=== PATIENT | male | born 1970 | race African-American/Black ===

== ENCOUNTER 2023-07-29 06:26 | Emergency (ER) | payer OTHER ==
[2023-07-29 06:34] VITALS: BP 140/92; PULSE 110; RESP 20; TEMP 98.3; BMI 22.4
[2023-07-29] MEDS ORDERED: LACTATED RINGERS SOLUTION 1000 ML INFUS.BAG IV ONE (07:22)
[2023-07-29] MEDS ORDERED: ACETAMINOPHEN 1000 MG/100 ML BAG IVPB ONE (07:25)
[2023-07-29] MEDS ORDERED: GABAPENTIN 400 MG CAPSULE PO ONE (07:30)
[2023-07-29] MEDS ORDERED: ACETAMINOPHEN INJECTION 100 ML IVPB ONE (07:53)
[2023-07-29] MEDS ORDERED: GABAPENTIN 400 MG CAPSULE ONE (07:53)
[2023-07-29] MEDS ORDERED: ONDANSETRON 4 MG/2 ML VIAL IVPUSH ONE (08:01)
[2023-07-29] MEDS ORDERED: ONDANSETRON 4 MG/2 ML VIAL ONE (08:02)
[2023-07-29 08:07] LABS: PH,URINE 6.5 (5.0-8.0); URINE APPEARANCE CLEAR; URINE BILIRUBIN NEGATIVE (NEGATIVE); URINE COLOR YELLOW; URINE GLUCOSE (UA) 3+ (NEGATIVE); URINE KETONE NEGATIVE (NEGATIVE); URINE LEUK ESTERASE NEGATIVE (NEGATIVE); URINE NITRITE NEGATIVE (NEGATIVE); URINE PROTEIN NEGATIVE (NEGATIVE); URINE UROBILINOGEN 0.2 mg/dL (0.2-1.0)
[2023-07-29 08:13] LABS: BASO % 0.5 % (0-2.0); EOS % 0.7 % (0-4.5); HEMATOCRIT 41.6 % (35.4-49); HEMOGLOBIN 13.5 GM/dL (11.7-16.9); LYMPH % 33.5 % (8-40); MCH 26.8 pg (25.7-33.7); MCHC 32.5 g/dl (32.0-35.9); MEAN CELL VOLUME 82.2 fl (80-96); MONO % 5.7 % (3.8-10.2); NEUT % 59.6 % (42.8-82.8); PLATELET COUNT 218 10^3/uL (134-434); RBC 5.06 M/mm3 (4.00-5.60); RDW 13.3 % (11.9-15.9); WHITE BLOOD COUNT 5.5 K/mm3 (4.0-10.0)
[2023-07-29 08:31] LABS: CHLORIDE 96 mmol/L (98-107); SODIUM 135 mmol/L (136-145)
[2023-07-29 08:35] LABS: ALBUMIN 3.4 g/dl (3.4-5.0); ANION GAP 6 mmol/L (4-13); BLOOD UREA NITROGEN 11.3 mg/dL (7-18); CO2 33 mmol/L (21-32)
[2023-07-29 08:37] LABS: CREATININE 1.3 mg/dL (0.55-1.3); SGOT/AST 13 U/L (15-37); SGPT/ALT 24 U/L (13-61)
[2023-07-29 08:39] LABS: BILIRUBIN,TOTAL 0.3 mg/dL (0.2-1); TOT PROT 6.2 g/dl (6.4-8.2)
[2023-07-29 08:40] LABS: ALK PHOS 213 U/L (45-117)
[2023-07-29] MEDS ORDERED: oxyCODONE HCL 5 MG TABLET PO ONE (10:08)
[2023-07-29] MEDS ORDERED: INSULIN (NOVOLOG MIX 70/30) 100 UNITS/ML MDV SQ ONE ×2 (10:23→10:32)
[2023-07-29] MEDS ORDERED: oxyCODONE HCL 5 MG TABLET ONE (10:29)
[2023-07-29 11:20] LABS: GLUCOSE,RANDOM 587 mg/dL (74-106)
== END 2023-07-29 12:04 | disposition home or self-care (01) ==
LOC: JER 06:26
PROC: 3E033NZ Introduction of Analgesics, Hypnotics, Sedatives into Peripheral Vein, Percutaneous Approach (ICD-10-PCS; principal; 2023-07-29)
PROC: 3E033GC Introduction of Other Therapeutic Substance into Peripheral Vein, Percutaneous Approach (ICD-10-PCS; 2023-07-29)
DX: E11.65 Type 2 diabetes mellitus with hyperglycemia (principal); E11.40 Type 2 diabetes mellitus with diabetic neuropathy, unspecified; M79.641 Pain in right hand; M79.642 Pain in left hand; M79.671 Pain in right foot; M79.672 Pain in left foot; R11.0 Nausea; R35.0 Frequency of micturition; R10.9 Unspecified abdominal pain; I10 Essential (primary) hypertension
CPT/HCPCS: 36415; 80053; 81003; 82010; 82962; 83735; 85025; 87086; 99284-25

== ENCOUNTER 2023-09-25 03:46 | Emergency (ER) | payer OTHER ==
[2023-09-25 03:54] VITALS: BMI 22.4
[2023-09-25] MEDS ORDERED: ACETAMINOPHEN INJECTION 100 ML IVPB ONE (04:53)
[2023-09-25] MEDS ORDERED: ONDANSETRON 4 MG/2 ML VIAL ONE (04:54)
[2023-09-25] MEDS: ACETAMINOPHEN 1000 MG/100 ML BAG IVPB ONE (05:16)
[2023-09-25] MEDS: ONDANSETRON 4 MG/2 ML VIAL IVPUSH ONE (05:17)
[2023-09-25] MEDS ORDERED: GABAPENTIN 400 MG CAPSULE ONE (05:23)
[2023-09-25] MEDS: GABAPENTIN 400 MG CAPSULE PO ONE (05:26)
[2023-09-25 05:41] LABS: VENOUS BASE EXCESS -0.1 mmol/L (-2-2); VENOUS O2 SATURATION 34.7 % (70-80); VENOUS PH 7.346 (7.310-7.410)
[2023-09-25 06:05] LABS: POTASSIUM 3.8 mmol/L (3.5-5.1)
[2023-09-25 06:08] LABS: ALBUMIN 3.4 g/dl (3.4-5.0); BLOOD UREA NITROGEN 11.6 mg/dL (7-18); CALCIUM 8.5 mg/dL (8.5-10.1)
[2023-09-25 06:09] LABS: BASO % 0.3 % (0-2.0); EOS % 0.6 % (0-4.5); HEMATOCRIT 40.2 % (35.4-49); HEMOGLOBIN 13.1 GM/dL (11.7-16.9); MCH 26.6 pg (25.7-33.7); MCHC 32.7 g/dl (32.0-35.9); MEAN CELL VOLUME 81.4 fl (80-96); MEAN PLT VOLUME 8.8 fl (7.5-11.1); MONO % 5.4 % (3.8-10.2); NEUT % 51.7 % (42.8-82.8); PLATELET COUNT 239 10^3/uL (134-434); RBC 4.94 M/mm3 (4.00-5.60); RDW 13.5 % (11.9-15.9); WHITE BLOOD COUNT 6.2 K/mm3 (4.0-10.0)
[2023-09-25 06:10] LABS: CREATININE 0.9 mg/dL (0.55-1.3)
[2023-09-25 06:11] LABS: BILIRUBIN,TOTAL 0.6 mg/dL (0.2-1)
[2023-09-25 06:13] LABS: TOT PROT 6.1 g/dl (6.4-8.2)
[2023-09-25 06:32] LABS: URINE APPEARANCE CLEAR; URINE BILIRUBIN NEGATIVE (NEGATIVE); URINE COLOR YELLOW; URINE GLUCOSE (UA) 3+ (NEGATIVE); URINE KETONE NEGATIVE (NEGATIVE); URINE LEUK ESTERASE NEGATIVE (NEGATIVE); URINE NITRITE NEGATIVE (NEGATIVE); URINE PROTEIN NEGATIVE (NEGATIVE)
[2023-09-25] MEDS ORDERED: KETOROLAC TROMETHAMINE 15 MG/ML VIAL ONE (07:57)
[2023-09-25] MEDS ORDERED: METOCLOPRAMIDE HCL INJECTION 10 MG/2 ML VIAL ONE (07:57)
[2023-09-25] MEDS: SODIUM CHLORIDE 0.9% 500 ML INFUS.BAG IV ONE (08:10)
[2023-09-25] MEDS: KETOROLAC TROMETHAMINE 15 MG/ML VIAL IVPUSH ONE (08:10)
[2023-09-25] MEDS: METOCLOPRAMIDE HCL INJECTION 10 MG/2 ML VIAL IVPUSH ONE (08:10)
[2023-09-25] MEDS ORDERED: LIDOCAINE 4% PATCH TP ONE (09:25)
[2023-09-25] MEDS ORDERED: METHOCARBAMOL 500 MG TABLET ONE (09:25)
[2023-09-25] MEDS: METHOCARBAMOL 500 MG TABLET PO ONE (09:28)
[2023-09-25] MEDS: LIDOCAINE 5% TOPICAL PATCH TP ONE (09:28)
[2023-09-25 09:41] VITALS: BP 133/96; PULSE 83; RESP 20; TEMP 98.1
== END 2023-09-25 09:46 | disposition home or self-care (01) ==
LOC: JER 03:46
PROC: 3E033NZ Introduction of Analgesics, Hypnotics, Sedatives into Peripheral Vein, Percutaneous Approach (ICD-10-PCS; principal; 2023-09-25)
PROC: 3E0333Z Introduction of Anti-inflammatory into Peripheral Vein, Percutaneous Approach (ICD-10-PCS; 2023-09-25)
PROC: 3E033GC Introduction of Other Therapeutic Substance into Peripheral Vein, Percutaneous Approach (ICD-10-PCS; 2023-09-25)
PROC: 3E033GC Introduction of Other Therapeutic Substance into Peripheral Vein, Percutaneous Approach (ICD-10-PCS; 2023-09-25)
DX: M54.50 Low back pain, unspecified (principal); R10.32 Left lower quadrant pain; R52 Pain, unspecified; R11.0 Nausea; R19.7 Diarrhea, unspecified
CPT/HCPCS: 36415; 71045-TC-FY; 72131-TC; 74177-TC; 80053; 81003; 82010; 82803; 82962; 83690; 84484; 85025; 87086; 93005; 93010; 99285-25; J0131

== ENCOUNTER 2023-12-03 22:56 | Emergency (ER) | payer OTHER ==
[2023-12-03 23:13] VITALS: BP 122/90; PULSE 100; RESP 18; TEMP 98.4; BMI 22.0
[2023-12-04] MEDS ORDERED: GABAPENTIN 300 MG CAPSULE ONE (00:19)
[2023-12-04] MEDS ORDERED: KETOROLAC TROMETHAMINE 30 MG/1 ML VIAL ONE (00:20)
[2023-12-04] MEDS ORDERED: LIDOCAINE 4% PATCH TP ONE (00:20)
[2023-12-04] MEDS: LIDOCAINE 5% TOPICAL PATCH TP ONE (00:33)
[2023-12-04] MEDS: KETOROLAC TROMETHAMINE 30 MG/1 ML VIAL IM ONE (00:34)
[2023-12-04] MEDS: GABAPENTIN 300 MG CAPSULE PO ONE (00:34)
[2023-12-04] MEDS ORDERED: morphine SULFATE 4 MG/ML VIAL ONE (01:43)
[2023-12-04] MEDS: morphine CARPU-JECT 4 MG/1 ML DISP.SYRIN IM ONE (01:48)
[2023-12-04] MEDS ORDERED: LIDOCAINE PATCH REMOVAL MC SCH (22:00)
== END 2023-12-04 03:11 | disposition home or self-care (01) ==
LOC: JER 22:56
PROC: 3E0133Z Introduction of Anti-inflammatory into Subcutaneous Tissue, Percutaneous Approach (ICD-10-PCS; principal; 2023-12-04)
PROC: 3E013NZ Introduction of Analgesics, Hypnotics, Sedatives into Subcutaneous Tissue, Percutaneous Approach (ICD-10-PCS; 2023-12-04)
DX: M54.50 Low back pain, unspecified (principal); G89.29 Other chronic pain; R20.0 Anesthesia of skin
CPT/HCPCS: 82962; 96372; 99284-25

== ENCOUNTER 2024-01-07 15:32 | Emergency (ER) | payer OTHER ==
[2024-01-07 16:10] VITALS: BP 114/79; PULSE 111; RESP 20; BMI 20.9
[2024-01-07 16:23] VITALS: TEMP 98.3
[2024-01-07 17:13] LABS: VENOUS BASE EXCESS 5.3 mmol/L (-2-2); VENOUS O2 SATURATION 23.2 % (70-80); VENOUS PCO2 56.8 mmHg (38-52); VENOUS PH 7.373 (7.310-7.410)
[2024-01-07 17:14] LABS: BASO % 0.4 % (0-2.0); EOS % 0.4 % (0-4.5); HEMATOCRIT 42.8 % (35.4-49); HEMOGLOBIN 14.3 GM/dL (11.7-16.9); LYMPH % 29.7 % (8-40); MCH 27.1 pg (25.7-33.7); MCHC 33.4 g/dl (32.0-35.9); MEAN CELL VOLUME 81.1 fl (80-96); MEAN PLT VOLUME 8.1 fl (7.5-11.1); MONO % 3.9 % (3.8-10.2); NEUT % 65.6 % (42.8-82.8); PLATELET COUNT 242 10^3/uL (134-434); RBC 5.28 M/mm3 (4.00-5.60); RDW 13.7 % (11.9-15.9); WHITE BLOOD COUNT 8.1 K/mm3 (4.0-10.0)
[2024-01-07 17:18] LABS: PH,URINE 6.5 (5.0-8.0); URINE APPEARANCE CLEAR; URINE BILIRUBIN NEGATIVE (NEGATIVE); URINE COLOR YELLOW; URINE GLUCOSE (UA) 2+ (NEGATIVE); URINE KETONE TRACE (NEGATIVE); URINE LEUK ESTERASE NEGATIVE (NEGATIVE); URINE NITRITE NEGATIVE (NEGATIVE); URINE PROTEIN NEGATIVE (NEGATIVE)
[2024-01-07] MEDS: SODIUM CHLORIDE 0.9% 500 ML INFUS.BAG IV ONE (17:32)
[2024-01-07] MEDS: ACETAMINOPHEN 1000 MG/100 ML BAG IVPB ONE (17:33)
[2024-01-07 17:35] LABS: POTASSIUM 3.6 mmol/L (3.5-5.1)
[2024-01-07 17:37] LABS: ALBUMIN 3.6 g/dl (3.4-5.0); BLOOD UREA NITROGEN 18.3 mg/dL (7-18); CALCIUM 9.2 mg/dL (8.5-10.1)
[2024-01-07] MEDS ORDERED: morphine SULFATE 4 MG/ML VIAL ONE (17:39)
[2024-01-07 17:40] LABS: PHOSPHOROUS 3.7 mg/dL (2.5-4.9)
[2024-01-07 17:42] LABS: BILIRUBIN,TOTAL 0.5 mg/dL (0.2-1); TOT PROT 6.8 g/dl (6.4-8.2)
[2024-01-07] MEDS: morphine CARPU-JECT 4 MG/1 ML DISP.SYRIN IVPUSH ONE (17:43)
== END 2024-01-07 18:50 | disposition home or self-care (01) ==
LOC: JER 15:32
PROC: 3E033NZ Introduction of Analgesics, Hypnotics, Sedatives into Peripheral Vein, Percutaneous Approach (ICD-10-PCS; principal; 2024-01-07)
DX: E11.65 Type 2 diabetes mellitus with hyperglycemia (principal); M54.41 Lumbago with sciatica, right side; M54.42 Lumbago with sciatica, left side; Z79.4 Long term (current) use of insulin
CPT/HCPCS: 36415; 80053; 81003; 82010; 82803; 82962; 83735; 84100; 84484; 85025; 87086; 99284-25

== ENCOUNTER 2024-03-23 14:48 | Emergency (ER) | payer OTHER ==
[2024-03-23 15:21] VITALS: BP 131/88; PULSE 107; RESP 18; TEMP 98.4; BMI 20.9
[2024-03-23 17:13] LABS: PH,URINE 6.5 (5.0-8.0); URINE APPEARANCE CLEAR; URINE BILIRUBIN NEGATIVE (NEGATIVE); URINE COLOR YELLOW; URINE GLUCOSE (UA) 3+ (NEGATIVE); URINE KETONE 1+ (NEGATIVE); URINE LEUK ESTERASE NEGATIVE (NEGATIVE); URINE NITRITE NEGATIVE (NEGATIVE); URINE PROTEIN NEGATIVE (NEGATIVE); URINE UROBILINOGEN 0.2 mg/dL (0.2-1.0)
[2024-03-23 17:14] LABS: BASO % 0.5 % (0-2.0); EOS % 0.5 % (0-4.5); HEMATOCRIT 41.4 % (35.4-49); LYMPH % 35.3 % (8-40); MCH 27.1 pg (25.7-33.7); MCHC 33.7 g/dl (32.0-35.9); MEAN CELL VOLUME 80.3 fl (80-96); MEAN PLT VOLUME 8.3 fl (7.5-11.1); MONO % 4.3 % (3.8-10.2); NEUT % 59.4 % (42.8-82.8); PLATELET COUNT 240 10^3/uL (134-434); RBC 5.16 M/mm3 (4.00-5.60); RDW 13.4 % (11.9-15.9); WHITE BLOOD COUNT 6.2 K/mm3 (4.0-10.0)
[2024-03-23] MEDS ORDERED: ACETAMINOPHEN INJECTION 100 ML ONE (17:19)
[2024-03-23] MEDS: SODIUM CHLORIDE 0.9% 500 ML INFUS.BAG IV ONE (17:25)
[2024-03-23] MEDS: ACETAMINOPHEN 1000 MG/100 ML BAG IVPB ONE (17:25)
[2024-03-23 17:31] LABS: POTASSIUM 4.1 mmol/L (3.5-5.1)
[2024-03-23 17:33] LABS: CALCIUM 9.4 mg/dL (8.5-10.1)
[2024-03-23 17:34] LABS: ALBUMIN 3.6 g/dl (3.4-5.0); BLOOD UREA NITROGEN 16.9 mg/dL (7-18); MAGNESIUM 1.8 mg/dL (1.8-2.4)
[2024-03-23 17:37] LABS: PHOSPHOROUS 4.3 mg/dL (2.5-4.9)
[2024-03-23 17:38] LABS: BILIRUBIN,TOTAL 0.5 mg/dL (0.2-1)
[2024-03-23 17:39] LABS: TOT PROT 6.4 g/dl (6.4-8.2)
[2024-03-23 18:27] LABS: HIV INTERPRETATION NEGATIVE (NEGATIVE)
== END 2024-03-23 18:12 | disposition left against medical advice (07) ==
LOC: JER 14:48
PROC: 3E033NZ Introduction of Analgesics, Hypnotics, Sedatives into Peripheral Vein, Percutaneous Approach (ICD-10-PCS; principal; 2024-03-23)
DX: R07.9 Chest pain, unspecified (principal); R35.0 Frequency of micturition; R63.0 Anorexia; R00.0 Tachycardia, unspecified; G89.29 Other chronic pain; Z20.822 Contact with and (suspected) exposure to COVID-19
CPT/HCPCS: 0241U-QW; 36415; 71045-TC-FY; 80053; 81003; 82962; 83735; 84100; 84484; 85025; 86803; 87086; 87389; 93005; 93010; 96374; 99285-25; J0131